=== PATIENT | female | born 1950 | race Caucasian/White ===

== ENCOUNTER → 2016-11-25 | Outpatient (CLI) | payer MEDICARE ==
[~2016-11-25] MED LIST: CEPHALEXIN500 MG PO; GABAPENTIN 600600 MG OR; GLIMEPIRIDE 2MG2 MG PO; GLIPIZIDE AND M1 TA2 PO; HYDROCHLOROTH12.5 M1 PO; HYDROCODONE 7.51 TAB PO; HYDROCODONE/ACE1 TA5 PO; LIPITOR10 MG PO; LISINOPRIL 20MG20 MG PO; LORTAB 5/500 501 TAB PO; METFORMIN 500M500 M1 PO; METFORMIN ER500 MG PO; METFORMIN500 MG PO; PERCOCET 650 MG1 TAB PO; TRAMADOL 50MG T50 M1 PO
[2016-11-25 18:43] LABS: BUN 28 mg/dL (7-18)
[2016-11-25 19:09] LABS: GFR (ESTIMATED) 63 ML/MIN (59-)
== END ==
LOC: LAB 13:56
PROVIDERS: Nurse Practitioner Family
DX: E11.9 Type 2 diabetes mellitus without complications (principal)

== ENCOUNTER → 2016-12-02 | Outpatient (CLI) | payer MEDICARE | LOC: LAB 13:20 | DX: Z12.11 Encounter for screening for malignant neoplasm of colon (principal) ==

== ENCOUNTER → 2016-12-03 | Outpatient (CLI) | payer MEDICARE ==
[2016-12-06 11:36] LABS: STOOL OCCULT BLOOD NEGATIVE (NEG)
== END ==
LOC: LAB 15:22
PROVIDERS: Nurse Practitioner Family
DX: Z12.11 Encounter for screening for malignant neoplasm of colon (principal)
CPT/HCPCS: G0328

== ENCOUNTER → 2016-12-04 | Outpatient (CLI) | payer MEDICARE ==
[2016-12-06 11:36] LABS: STOOL OCCULT BLOOD NEGATIVE (NEG)
== END ==
LOC: LAB 16:45
PROVIDERS: Nurse Practitioner Family
DX: Z12.11 Encounter for screening for malignant neoplasm of colon (principal)
CPT/HCPCS: G0328

== ENCOUNTER → 2016-12-05 | Outpatient (CLI) | payer MEDICARE ==
[2016-12-06 11:36] LABS: STOOL OCCULT BLOOD NEGATIVE (NEG)
== END ==
LOC: LAB 09:00
PROVIDERS: Nurse Practitioner Family
DX: Z12.11 Encounter for screening for malignant neoplasm of colon (principal)